=== PATIENT | female | born 1990 | race Caucasian/White ===

== ENCOUNTER 2017-10-04 02:05 | Observation (INO) | payer SELFPAY ==
[~2017-10-04] VITALS: Ht 165.1 cm; Wt 68.0 kg
[2017-10-04 02:06] VITALS: BP 122/81; PULSE 121; RESP 16; TEMP 98.2; O2SAT 96
--- NOTE | 2017-10-04 02:43 | PD ---
HPI Chief Complaint: Skin Problem Time Seen by Provider: 02:33 Travel History International Travel<30 days: No Contact w/Intl Traveler<30days: No Traveled to known affect area: No History of Present Illness HPI Patient is a 27-year-old female who apparently IVDA abuse. Possible miised injection causing sub Q bacteria to cause an abscess that is now spreading to her L hand upper arm on the left extensor surface and dorsum of her hand .Pt is tearful and when I tell her she'll need IV antibiotics and to be admitted she 's crying saying she needs to leave and smoke a cigarette already I tell her how serious this is an that she could lose her hand. I tell her I have seen people have amputations if they ignored the severity of their arm infection and don't take care of an abscess and infection that is spreading and worsening . Male friend? bedside tells her she should stay ... I order immediately her nicotine patch and Ativan and clonidine to help take the edge off of her nicotine and heroin withdrawal symptoms ,..patient at this times agreeing to stay for IV vancomycin I explained severity in danger of not treating an arm cellulitis/early abscess hand that is spreading... her hand is signifiacntly swollen she is unable to move her thumb towards her fifth& fourth digit PFS Past Medical History ADHD: No Cancer: No Cardiovascular Problems: No Diabetes: No Diminished Hearing: No Psychiatric: No Immunizations Current: Yes Migraines: No Seizures: No Thyroid Disease: No Ulcer: No Tetanus Vaccination: Unknown Influenza Vaccination: No ?: Unknown LMP: 09/30/17 Past Surgical History Appendectomy: No Cholecystectomy: No Other Surgery: No Social History Alcohol Use: No Tobacco Use: Yes Substance Use: Yes (XANAX) Allergies-Medications (Allergen,Severity, Reaction): Coded Allergies: *MDRO Multi-Drug Resistant Organism (Verified Allergy, Unknown, 10/05/17) MRSA 08/2013 Reported Meds & Prescriptions Reported Meds & Active Scripts Active No Active Prescriptions or Reported Medications Review of Systems Except as stated in HPI: all other systems reviewed are Neg Physical Exam Narrative GENERAL: tearful and asking to go out to smoke a cigarette as soon as I enter exam room SKIN: Warm and dry. HEAD: Atraumatic. Normocephalic. EYES: Pupils equal and round. No scleral icterus. No injection or drainage. ENT: No nasal bleeding or discharge. Mucous membranes pink and moist. NECK: Trachea midline. No JVD. CARDIOVASCULAR: Regular rate and rhythm. RESPIRATORY: No accessory muscle use. Clear to auscultation. Breath sounds equal bilaterally. GASTROINTESTINAL: Abdomen soft, non-tender, nondistended. Hepatic and splenic margins not palpable. MUSCULOSKELETAL: Extremities right hand severtely swollen decreased ROM of thumb due to fullness of thenar area right hand red tender edema. . NEUROLOGICAL: Awake and alert. No obvious cranial nerve deficits. Motor grossly within normal limits. Five out of 5 muscle strength in the arms and legs. Normal speech. PSYCHIATRIC: addiction withdrwal affecting her judgment Data Data Last Documented VS Vital Signs Date Time Temp Pulse Resp B/P (MAP) Pulse Ox O2 Delivery O2 Flow Rate FiO2 10/04/17 05:32 92 16 129/76 (93) 98 Room Air 10/04/17 02:06 98.2 Orders Orders Nicotine 21 Mg Patch.24 Hr (Habitrol 21 (10/04/17 02:45) Lorazepam (Ativan) (10/04/17 02:45) Vancomycin Inj (Vancomycin Inj) (10/04/17 02:45) Blood Culture (10/04/17 02:40) Complete Blood Count With Diff (10/04/17 02:40) Comprehensive Metabolic Panel (10/04/17 02:40) Ketorolac Inj (Toradol Inj) (10/04/17 04:00) Lorazepam Inj (Ativan Inj) (10/04/17 04:30) Clonidine (Catapres) (10/04/17 04:30) Clonidine (Catapres) (10/04/17 04:30) Lorazepam Inj (Ativan Inj) (10/04/17 05:30) Vancomycin Consult Pharmacy (Vancomycin (10/04/17 06:00) Cefepime Inj (Maxipime Inj) (10/04/17 06:00) Place In Observation (10/04/17 ) Vital Signs (Adult) Q4H (10/04/17 05:49) Activity Oob Ad Silke (10/04/17 05:49) Diet Regular Basic (10/04/17 Breakfast) Sodium Chlor 0.9% 1000 Ml Inj (Ns 1000 M (10/04/17 05:49) Sodium Chloride 0.9% Flush (Ns Flush) (10/04/17 06:00) Sodium Chloride 0.9% Flush (Ns Flush) (10/04/17 09:00) Ondansetron Inj (Zofran Inj) (10/04/17 06:00) Scd Bilateral/Knee High BARON.BID (10/04/17 05:49) Trey Bilateral/Knee High BARON.QSHIFT (10/04/17 06:00) Acetaminophen (Tylenol) (10/04/17 06:00) Oxycodone (Roxicodone) (10/04/17 06:00) Oxycodone (Roxicodone) (10/04/17 06:00) Docusate Sodium-Senna (Brittany-Colace) (10/04/17 09:00) Magnesium Hydroxide Liq (Milk Of Magnesi (10/04/17 06:00) Sennosides (Senokot) (10/04/17 06:00) Bisacodyl Supp (Dulcolax Supp) (10/04/17 06:00) Lactulose Liq (Lactulose Liq) (10/04/17 06:00) Admit Order (Ed Use Only) (10/04/17 06:07) Labs Laboratory Tests Test 10/04/17 02:56 White Blood Count 5.9 TH/MM3 Red Blood Count 4.16 MIL/MM3 Hemoglobin 13.0 GM/DL Hematocrit 35.9 % Mean Corpuscular Volume 86.3 FL Mean Corpuscular Hemoglobin 31.2 PG Mean Corpuscular Hemoglobin Concent 36.2 % Red Cell Distribution Width 13.6 % Platelet Count 271 TH/MM3 Mean Platelet Volume 8.0 FL Neutrophils (%) (Auto) 75.9 % Lymphocytes (%) (Auto) 10.4 % Monocytes (%) (Auto) 9.4 % Eosinophils (%) (Auto) 1.3 % Basophils (%) (Auto) 3.0 % Neutrophils # (Auto) 4.5 TH/MM3 Lymphocytes # (Auto) 0.6 TH/MM3 Monocytes # (Auto) 0.5 TH/MM3 Eosinophils # (Auto) 0.1 TH/MM3 Basophils # (Auto) 0.2 TH/MM3 CBC Comment DIFF FINAL Differential Comment Blood Urea Nitrogen 6 MG/DL Creatinine 0.61 MG/DL Random Glucose 100 MG/DL Total Protein 7.4 GM/DL Albumin 3.1 GM/DL Calcium Level 8.5 MG/DL Alkaline Phosphatase 51 U/L Aspartate Amino Transf (AST/SGOT) 42 U/L Alanine Aminotransferase (ALT/SGPT) 26 U/L Total Bilirubin 0.8 MG/DL Sodium Level 135 MEQ/L Potassium Level 3.1 MEQ/L Chloride Level 98 MEQ/L Carbon Dioxide Level 30.5 MEQ/L Anion Gap 7 MEQ/L Estimat Glomerular Filtration Rate 118 ML/MIN [facility] Medical Decision Making Medical Screen Exam Complete: Yes Emergency Medical Condition: Yes Differential Diagnosis cellulitis arm and hand , vs abscess , vs necrotizing fascitis, vs IVDA complication of injecting into soft tissue , tenosynovitis Narrative Course pt is given VAnco IV and toradol for pain,, she is at risk for leaving without completion of her treatment and risk of limb loss . I give her ativan and clonidine. I order it as a schedule Q 3-4 hr for withdrawal symptoms . I tell pt narcotics not indicated but will given meds to help pain , toradol q 6 and ativan and clonidine , she is sleeping when admitted , at that point compliant with plan B/C and CBC sent Diagnosis Primary Impression: Cellulitis of hand Additional Impression: Left arm cellulitis Scripts No Active Prescriptions or Reported Meds Dereck Eng MD Oct 04, 2017 02:43
[2017-10-04] MEDS ORDERED: NICOTINE 21 MG/24 HR PATCH T-DERMAL ONE (02:45)
[2017-10-04] MEDS ORDERED: LORazepam 1 MG TAB PO ONE (02:45)
[2017-10-04] MEDS ORDERED: VANCOMYCIN INJ 1,000 MG in SODIUM CHLOR 0.9% 250 ML INJ 250 ML IV ONE (02:45)
[2017-10-04 03:45] LABS: AUTOMATED NEUTROPHIL # 4.5 TH/MM3 (1.8-7.7); BASOPHIL # 0.2 TH/MM3 (0-0.2); EOSINOPHIL # 0.1 TH/MM3 (0-0.4); EOSINOPHIL % 1.3 % (0.0-4.0); HEMATOCRIT 35.9 % (35.0-46.0); LYMPH % 10.4 % (9.0-44.0); LYMPHOCYTE # 0.6 TH/MM3 (1.0-4.8); MEAN CELL VOLUME 86.3 FL (80.0-100.0); MEAN CORPUSCULAR HEMOGLOBIN 31.2 PG (27.0-34.0); MONO % 9.4 % (0.0-8.0); MONOCYTE # 0.5 TH/MM3 (0-0.9); NEUT % 75.9 % (16.0-70.0); PLATELET COUNT 271 TH/MM3 (150-450); RED BLOOD COUNT 4.16 MIL/MM3 (4.00-5.30); RED CELL DISTRIBUTION WIDTH 13.6 % (11.6-17.2); WHITE BLOOD COUNT 5.9 TH/MM3 (4.0-11.0)
[2017-10-04 03:48] LABS: MEAN CORPUSCULAR HGB CONC 36.2 % (32.0-36.0)
[2017-10-04 03:49] LABS: ALKALINE PHOSPHATASE 51 U/L (45-117); TOTAL BILIRUBIN ADULT 0.8 MG/DL (0.2-1.0); TOTAL PROTEIN 7.4 GM/DL (6.4-8.2)
[2017-10-04] MEDS ORDERED: KETOROLAC TROMETHAMINE 30 MG/ML (IVP) VIAL IV PUSH ONE (04:00)
[2017-10-04 04:07] LABS: ALBUMIN 3.1 GM/DL (3.4-5.0); ALT (GPT) 26 U/L (10-53); AST (GOT) 42 U/L (15-37); BICARBONATE 30.5 MEQ/L (21.0-32.0); BLOOD UREA NITROGEN 6 MG/DL (7-18); CALCIUM 8.5 MG/DL (8.5-10.1); CHLORIDE 98 MEQ/L (98-107); CREATININE 0.61 MG/DL (0.50-1.00); GLOMERULAR FILTRATION RATE 118 ML/MIN (>89); GLUCOSE,RANDOM 100 MG/DL (74-106); SODIUM (NA) 135 MEQ/L (136-145)
[2017-10-04] MEDS ORDERED: LORazepam 2 MG/ML VIAL IV PUSH ONE (04:30)
[2017-10-04] MEDS ORDERED: cloNIDine HCL 0.1 MG TAB PO ONE (04:30)
[2017-10-04] MEDS ORDERED: cloNIDine HCL 0.1 MG TAB PO PRN (04:30)
[2017-10-04] MEDS ORDERED: LORazepam 2 MG/ML VIAL IV PUSH PRN (05:30)
[2017-10-04 05:32] VITALS: BP 129/76; PULSE 92; RESP 16; O2SAT 98
[2017-10-04] MEDS ORDERED: Vancomycin Consult Pharmacy 1 EA OTHER SCH (06:00)
[2017-10-04] MEDS ORDERED: ONDANSETRON HCL 4 MG/2 ML VIAL IVP PRN (06:00)
[2017-10-04] MEDS ORDERED: BISACODYL 10 MG SUPP RECTAL PRN (06:00)
[2017-10-04] MEDS ORDERED: SODIUM CHLORIDE 0.9% FLUSH 10 ML FLUSH IV FLUSH PRN (06:00)
[2017-10-04] MEDS ORDERED: SENNOSIDES 8.6 MG TAB PO PRN (06:00)
[2017-10-04] MEDS ORDERED: LACTULOSE SYRUP 20 GM/30 ML CUP PO PRN (06:00)
[2017-10-04] MEDS ORDERED: ACETAMINOPHEN 325 MG TAB PO PRN (06:00)
[2017-10-04] MEDS ORDERED: MAGNESIUM HYDROXIDE SUSP 30 ML CUP PO PRN (06:00)
[2017-10-04] MEDS: CEFEPIME INJ 1,000 MG in SODIUM CHLORIDE 0.9% INJ 100 ML IV SCH ×2 (06:05→18:02)
[2017-10-04] MEDS: SODIUM CHLOR 0.9% 1000 ML INJ 1,000 ML IV SCH ×2 (06:10→15:49)
[2017-10-04] MEDS ORDERED: SODIUM CHLORIDE 0.9% FLUSH 10 ML FLUSH IV FLUSH SCH (09:00)
[2017-10-04] MEDS ORDERED: DOCUSATE SODIUM 50 MG/SENNA 8.6 MG TAB PO SCH (09:00)
[2017-10-04] MEDS ORDERED: KETOROLAC TROMETHAMINE 30 MG/ML (IVP) VIAL IV PUSH PRN (09:45)
[2017-10-04] MEDS ORDERED: traMADol/ACETAMINOPHEN 37.5/325 1 TAB PO PRN (09:45)
[2017-10-04] MEDS ORDERED: POTASSIUM CHLORIDE 20 MEQ CONTROLLED RELEASE TAB PO ONE (09:45)
--- NOTE | 2017-10-04 09:49 | HHI.HP ---
[facility] Service [facility] Primary Care Physician No Primary Care Physician Admission Diagnosis arm cellulitis Diagnoses: Chief Complaint: Left arm pain and cellulitis Travel History International Travel<30 Days: No Contact w/Intl Traveler <30 Da: No Traveled to Known Affected Are: No History of Present Illness This is a 27-year-old female IV drug user with heroin when who presented with left arm cellulitis. Patient is not very talkative minimal 1 to give much history. She stated that she noticed the swelling started 4 days ago. She is a current IV drug user. Patient stated she has subjective fever. Otherwise she has no complaints. There is an older gentleman at her bedside who is a friend. Patient stated that she will only stay in the hospital only if "i knocked her out" during the entire course. She stated that she does not want to be awake why she's getting treatment here. All other review system reviewed and negative. Past Family Social History Past Medical History IV drug use with heroin Past Surgical History Denies any past surgical history. Reported Medications Denied any home medication use. Allergies: Coded Allergies: *MDRO Multi-Drug Resistant Organism (Verified Allergy, Unknown, 10/04/17) MRSA 08/2013 Active Ordered Medications Current Medications Nicotine (Habitrol 21 Mg Patch.24 Hr) 1 patch ONCE ONCE T-DERMAL Last administered on 10/04/17at 02:49; Start 10/04/17 at 02:45; Stop 10/04/17 at 02:46 ; Status DC Lorazepam (Ativan) 1 mg ONCE ONCE PO Last administered on 10/04/17at 02:49; Start 10/04/17 at 02:45; Stop 10/04/17 at 02:46; Status DC Vancomycin HCl 1000 mg/Sodium Chloride 250 ml @ 250 mls/hr ONCE ONCE IV Last administered on 10/04/17at 03:00; Start 10/04/17 at 02:45; Stop 10/04/17 at 03:44 ; Status DC Ketorolac Tromethamine (Toradol Inj) 30 mg ONCE ONCE IV PUSH Last administered on 10/04/17at 04:02; Start 10/04/17 at 04:00; Stop 10/04/17 at 04:01 ; Status DC Lorazepam (Ativan Inj) 1 mg ONCE ONCE IV PUSH Last administered on 10/04/17at 04:34; Start 10/04/17 at 04:30; Stop 10/04/17 at 04:37; Status DC Clonidine (Catapres) 0.1 mg ONCE ONCE PO Last administered on 10/04/17at 04:34 ; Start 10/04/17 at 04:30; Stop 10/04/17 at 04:37; Status DC Clonidine (Catapres) 0.1 mg Q6H PRN PO ANXIETY; Start 10/04/17 at 04:30; Stop 10/04/17 at 09:36; Status DC Lorazepam (Ativan Inj) 0.5 mg Q4H PRN IV PUSH agitation; Start 10/04/17 at 05: 30; Stop 10/04/17 at 09:36; Status DC Pharmacy Profile Note 0 ml @ 0 mls/hr UNSCH OTHER ; Start 10/04/17 at 06:00 Cefepime HCl 1000 mg/Sodium Chloride 100 ml @ 200 mls/hr Q12H IV Last administered on 10/04/17at 06:05; Start 10/04/17 at 06:00 Sodium Chloride 1,000 ml @ 100 mls/hr Q10H IV Last administered on 10/04/17at 06:10; Start 10/04/17 at 05:49 Sodium Chloride (NS Flush) 2 ml UNSCH PRN IV FLUSH FLUSH AFTER USING IV ACCESS ; Start 10/04/17 at 06:00 Sodium Chloride (NS Flush) 2 ml BID IV FLUSH ; Start 10/04/17 at 09:00 Ondansetron HCl (Zofran Inj) 4 mg Q6H PRN IVP NAUSEA OR VOMITING; Start at 06:00 Acetaminophen (Tylenol) 650 mg Q6H PRN PO FEVER/PAIN SCALE 1 TO 2; Start at 06:00 Oxycodone HCl (Roxicodone) 10 mg Q4H PRN PO PAIN SCALE 6 TO 10; Start 10/04/17 at 06:00 Oxycodone HCl (Roxicodone) 5 mg Q4H PRN PO PAIN SCALE 3 TO 5; Start 10/04/17 at 06:00 Senna/Docusate Sodium (Brittany-Colace) 1 tab BID PO ; Start 10/04/17 at 09:00 Magnesium Hydroxide (Milk Of Magnesia Liq) 30 ml Q12H PRN PO Mild constipation ; Start 10/04/17 at 06:00 Sennosides (Senokot) 17.2 mg Q12H PRN PO Moderate constipation; Start 10/04/17 at 06:00 Bisacodyl (Dulcolax Supp) 10 mg DAILY PRN RECTAL SEVERE CONSITIPATION; Start at 06:00 Lactulose (Lactulose Liq) 30 ml DAILY PRN PO SEVERE CONSITIPATION; Start at 06:00 Ketorolac Tromethamine (Toradol Inj) 15 mg Q6H PRN IV PUSH PAIN 3-10; Start at 09:45; Status UNV Tramadol/ Acetaminophen (Ultracet 37.5-325 Mg) 1 tab Q4H PRN PO PAIN 3-10; Start 10/04/17 at 09:45; Status UNV Potassium Chloride (KCl) 20 meq ONCE ONCE PO ; Start 10/04/17 at 09:45; Stop at 09:46; Status UNV Hydroxyzine Pamoate (Vistaril) 25 mg Q4H PRN PO ANIXETY; Start 10/04/17 at 09: 45; Status UNV Family History Deny any past family history history. Social History Current IV drug user. Smokes tobacco. Denies any alcohol use. Physical Exam Vital Signs Vital Signs Date Time Temp Pulse Resp B/P (MAP) Pulse Ox O2 Delivery O2 Flow Rate FiO2 10/04/17 07:12 10/04/17 05:32 92 16 129/76 (93) 98 Room Air 10/04/17 02:06 98.2 121 16 122/81 (95) 96 Room Air Physical Exam GENERAL: This is a well-nourished, well-developed patient, in no apparent distress. SKIN: Left arm swelling with mild erythema. Tenderness to palpation but soft. Full range of motion of the elbow. radial Pulses intact. sensation intact. HEAD: Atraumatic. Normocephalic. No temporal or scalp tenderness. EYES: Pupils equal round and reactive. Extraocular motions intact. No scleral icterus. No injection or drainage. ENT: Nose without bleeding, purulent drainage or septal hematoma. Throat without erythema, tonsillar hypertrophy or exudate. Uvula midline. Airway patent. NECK: Trachea midline. No JVD or lymphadenopathy. Supple, nontender, no meningeal signs. CARDIOVASCULAR: Regular rate and rhythm without murmurs, gallops, or rubs. RESPIRATORY: Clear to auscultation. Breath sounds equal bilaterally. No wheezes , rales, or rhonchi. GASTROINTESTINAL: Abdomen soft, non-tender, nondistended. No hepato-splenomegaly , or palpable masses. No guarding. MUSCULOSKELETAL: Extremities without clubbing, cyanosis, or edema. No joint tenderness, effusion, or edema noted. No calf tenderness. Negative Homans sign bilaterally. NEUROLOGICAL: Awake and alert. Cranial nerves II through XII intact. Motor and sensory grossly within normal limits. Five out of 5 muscle strength in all muscle groups. Normal speech. Laboratory Laboratory Tests Test 10/04/17 02:56 White Blood Count 5.9 Red Blood Count 4.16 Hemoglobin 13.0 Hematocrit 35.9 Mean Corpuscular Volume 86.3 Mean Corpuscular Hemoglobin 31.2 Mean Corpuscular Hemoglobin Concent 36.2 Red Cell Distribution Width 13.6 Platelet Count 271 Mean Platelet Volume 8.0 Neutrophils (%) (Auto) 75.9 Lymphocytes (%) (Auto) 10.4 Monocytes (%) (Auto) 9.4 Eosinophils (%) (Auto) 1.3 Basophils (%) (Auto) 3.0 Neutrophils # (Auto) 4.5 Lymphocytes # (Auto) 0.6 Monocytes # (Auto) 0.5 Eosinophils # (Auto) 0.1 Basophils # (Auto) 0.2 CBC Comment DIFF FINAL Differential Comment Blood Urea Nitrogen 6 Creatinine 0.61 Random Glucose 100 Total Protein 7.4 Albumin 3.1 Calcium Level 8.5 Alkaline Phosphatase 51 Aspartate Amino Transf (AST/SGOT) 42 Alanine Aminotransferase (ALT/SGPT) 26 Total Bilirubin 0.8 Sodium Level 135 Potassium Level 3.1 Chloride Level 98 Carbon Dioxide Level 30.5 Anion Gap 7 Estimat Glomerular Filtration Rate 118 Date/Time Source Procedure Growth Status 10/04/17 02:56 Blood Peripheral Aerobic Blood Culture Pending Received 10/04/17 02:56 Blood Peripheral Anaerobic Blood Culture Pending Received Result Diagram: 10/04/17 0256 10/04/17255 Caprini VTE Risk Assessment Caprini VTE Risk Assessment: No/Low Risk (score <= 1) Caprini Risk Assessment Model Point Value = 1 Point Value = 2 Point Value = 3 Point Value = 5 Age 41-60 Minor surgery BMI > 25 kg/m2 Swollen legs Varicose veins or History of unexplained or recurrent spontaneous Oral contraceptives or hormone replacement Sepsis (< 1 month) Serious lung disease, including pneumonia (< 1 month) Abnormal pulmonary function Acute myocardial infarction Congestive heart failure (< 1 month) History of inflammatory bowel disease Medical patient at bed rest Age 61-74 Arthroscopic surgery Major open surgery (> 45 min) Laparoscopic surgery (> 45 min) Malignancy Confined to bed (> 72 hours) Immobilizing plaster cast Central venous access Age >= 75 History of VTE Family history of VTE Factor V Leiden Prothrombin [id number] Lupus anticoagulant Anticardiolipin antibodies Elevated serum homocysteine Heparin-induced thrombocytopenia Other congenital or acquired thrombophilia Stroke (< 1 month) Elective arthroplasty Hip, pelvis, or leg fracture Acute spinal cord injury (< 1 month) Prophylaxis Regimen Total Risk Factor Score Risk Level Prophylaxis Regimen 0-1 Low Early ambulation 2 Moderate Order ONE of the following: *Sequential Compression Device (SCD) *Heparin 5000 units SQ BID 3-4 Higher Order ONE of the following medications: *Heparin 5000 units SQ TID *Enoxaparin/Lovenox 40 mg SQ daily (WT < 150 kg, CrCl > 30 mL/min) *Enoxaparin/Lovenox 30 mg SQ daily (WT < 150 kg, CrCl > 10-29 mL/min) *Enoxaparin/Lovenox 30 mg SQ BID (WT < 150 kg, CrCl > 30 mL/min) AND/OR *Sequential Compression Device (SCD) 5 or more Highest Order ONE of the following medications: *Heparin 5000 units SQ TID (Preferred with Epidurals) *Enoxaparin/Lovenox 40 mg SQ daily (WT < 150 kg, CrCl > 30 mL/min) *Enoxaparin/Lovenox 30 mg SQ daily (WT < 150 kg, CrCl > 10-29 mL/min) *Enoxaparin/Lovenox 30 mg SQ BID (WT < 150 kg, CrCl > 30 mL/min) AND *Sequential Compression Device (SCD) Assessment and Plan Assessment and Plan 27-year-old current IV drug user with heroin presented with left arm cellulitis Left arm cellulitis -Current IV drug user. Will cover empirically with vancomycin and cefepime. Consult infectious disease. -Continue to monitor clinically. -Extensive education given on treatment for left arm cellulitis. Patient told if not treated infection can spread which can lead to . Patient understood. -Toradol or tramadol IV drug user -Patient told cannot sedate patient throughout hospital course but can treat for any withdrawal symptoms including agitation. -Education given on how IV drug use can lead to . Anxiety -Vistaril. DVT prophylaxis -SCDs. Encourage ambulation. Code Status full Discussed Condition With patient, her friend at bedside, and her nurse Adrienne. Physician Certification 2 Midnight Certification Type: Admission for Inpatient Services Order for Inpatient Services The services are ordered in accordance with Medicare regulations or non- Medicare payer requirements, as applicable. In the case of services not specified as inpatient-only, they are appropriately provided as inpatient services in accordance with the 2-midnight benchmark. Estimated LOS (days): 3 3 days is the estimated time the patient will need to remain in the hospital, assuming treatment plan goals are met and no additional complications. Post-Hospital Plan: Mary Amin MD Oct 04, 2017 09:49
[2017-10-04 12:14] VITALS: BP 104/70; PULSE 85; RESP 20; TEMP 97.9; O2SAT 98
[2017-10-04] MEDS ORDERED: VANCOMYCIN 1,000 MG/NS 250 ML IV SCH ×2 (13:00)
[2017-10-04] MEDS: hydrOXYzine PAMOATE 25 MG CAP PO PRN ×2 (13:47→18:27)
[2017-10-04 16:33] VITALS: BP 110/68; PULSE 80; RESP 20; TEMP 98; O2SAT 98
--- NOTE | 2017-10-04 19:35 | MB ---
cc: MICHELET HUERTAS MD DATE OF CONSULTATION 10/04/[address] Mary So REASON FOR CONSULTATION A 27-year-old female with current IV drug use presented with left arm cellulitis. HISTORY OF PRESENT ILLNESS This is a 27-year-old white female who presented to the emergency department with swelling of her left arm. The patient is an IV drug user. She injected into the dorsum of her hand and she developed swelling of the left hand which started four days ago. The swelling increased and she presented to the emergency department for evaluation. The patient has no fever. White blood cell count is normal. Blood cultures were taken and the result is pending. She has been started on intravenous antibiotics. There is no break in the skin of the arm. The swelling extends from the dorsum of the hand up to the area near the elbow. She is unable to make a complete fist because of the swelling. PAST MEDICAL HISTORY IV drug use in the form of heroin. ALLERGIES NO KNOWN DRUG ALLERGIES. MEDICATIONS 1. Vancomycin 2. Cefepime. 3. Toradol. 4. Vistaril p.r.n. SOCIAL HISTORY Positive tobacco. No alcohol. IV drug use. FAMILY HISTORY Noncontributory. REVIEW OF SYSTEMS Significant for left arm pain. PHYSICAL EXAMINATION GENERAL: This is a well-developed female who is very somnolent. She did wake up to answer questions during my history taking, but she drifts back to sleep. VITAL SIGNS: Temperature 98 degrees, blood pressure 110/60, respirations 20, heart rate 80. HEENT: Head is atraumatic. Extraocular movements grossly intact. Pupils reactive to light. No icterus. Oropharynx slightly dry mucosa. NECK: Supple without adenopathy. LUNGS: Clear, decreased breath sounds HEART: Regular, S1, S2 without audible murmurs, rubs or gallops. ABDOMEN: Bowel sounds present, soft, no tenderness appreciated. RECTAL: Not performed. EXTREMITIES: The left upper extremity is markedly swollen and erythematous. The dorsum of the hand is markedly swollen and the swelling extends up to the elbow area. The ulnar and radial pulses are intact. Brisk capillary refill. The other extremities have no clubbing, cyanosis or edema. SKIN: No diffuse rash. The patient has multiple bruises at the anterior tibia on the left side more so than the right. No visible embolic skin lesions. NEUROLOGIC: No gross focal findings. The patient, however, is very somnolent. PSYCHIATRIC: The patient is calm. LABORATORY DATA WBC 5.9, platelets 271, 75% neutrophils, creatinine 0.61. Blood cultures pending. IMPRESSION Cellulitis of the left upper extremity arising from injecting IV drugs into the left hand. Known IV drug user who uses IV heroin. Blood cultures pending. RECOMMENDATIONS 1. Continue cefepime 2. Continue vancomycin 3. Monitor the left upper extremity 4. Elevate the left upper extremity. Thank you for this consultation. I will follow the patient along with you. Michelet Huertas MD FD/ /5:40 PM /7:23 PM
[2017-10-04 20:00] VITALS: BP 94/63; PULSE 96; RESP 18; TEMP 98.3; O2SAT 97
[2017-10-05] MEDS ORDERED: PHARMACY ORDERED LAB ONE (04:45)
== END 2017-10-04 22:57 | disposition left against medical advice (07) ==
LOC: NEPE 02:05 → NEDA 06:08 → NEPGCP 07:24
PROVIDERS: ADMIT Family Medicine; ATTEND Family Medicine
DX: L03.114 Cellulitis of left upper limb (principal); F11.23 Opioid dependence with withdrawal; F41.9 Anxiety disorder, unspecified; Z72.0 Tobacco use
CPT/HCPCS: 80053; 85025; 87040; 96361; 96365; 96366; 96375; 96376; 99285; G0378; J0692; J1885; J2060; J3370; J7030; J7050; Q0177

== ENCOUNTER 2017-10-05 00:52 | Inpatient (IN) | payer SELFPAY ==
[2017-10-05] VITALS (7 sets, daily range): BP systolic 98–120; BP diastolic 62–81; PULSE 76–113; RESP 16–18; TEMP 97.3–98.2; O2SAT 95–98
[~2017-10-05] VITALS: Ht 162.6 cm; Wt 80.0 kg
[2017-10-05] MEDS ORDERED: diphenhydrAMINE HCL 50 MG/ML VIAL ONE (01:22)
[2017-10-05] MEDS ORDERED: KETOROLAC TROMETHAMINE 30 MG/ML (IVP) VIAL ONE (01:22)
[2017-10-05] MEDS ORDERED: LORazepam 2 MG/ML VIAL ONE (02:13)
--- NOTE | 2017-10-05 02:46 | PD ---
HPI Chief Complaint: Skin Problem Time Seen by Provider: 01:00 Travel History International Travel<30 days: No Contact w/Intl Traveler<30days: No Traveled to known affect area: No History of Present Illness HPI 27-year-old female patient with history of IV drug use, admitted yesterday for left arm cellulitis, signed out AGAINST MEDICAL ADVICE 2 hours ago and returns today because she wants to get readmitted. She states that she just got upset because her visitor was asked to leave. She denies any new issues. PFSH Past Medical History ADHD: No Asthma: No Blood Disorders: No Anxiety: No Depression: Yes Heart Rhythm Problems: No Cancer: No Cardiovascular Problems: No High Cholesterol: No Chemotherapy: No Chest Pain: No Congestive Heart Failure: No COPD: No Diabetes: No Diminished Hearing: No Gastrointestinal Disorders: No Genitourinary: No Hypertension: No Immune Disorder: No Implanted Vascular Access Dvce: No Musculoskeletal: No Neurologic: No Psychiatric: No Respiratory: No Immunizations Current: Yes Migraines: No Radiation Therapy: No Seizures: No Sleep Apnea: No Thyroid Disease: No Ulcer: No ?: Not Past Surgical History Appendectomy: No Cholecystectomy: No Other Surgery: No Social History Alcohol Use: No Tobacco Use: Yes Substance Use: Yes (XANAX) Allergies-Medications (Allergen,Severity, Reaction): Coded Allergies: *MDRO Multi-Drug Resistant Organism (Verified Allergy, Unknown, 10/05/17) MRSA 08/2013 Reported Meds & Prescriptions Reported Meds & Active Scripts Active No Active Prescriptions or Reported Medications Review of Systems Except as stated in HPI: all other systems reviewed are Neg Physical Exam Narrative GENERAL: Well-developed young female patient currently in mild distress. Awake and oriented 3. SKIN: Focused skin assessment warm/dry. There is notable erythema and edema over the left hand and forearm which is tender to palpation. HEAD: Atraumatic. Normocephalic. EYES: Pupils equal and round. No scleral icterus. No injection or drainage. ENT: No nasal bleeding or discharge. Mucous membranes pink and moist. NECK: Trachea midline. No JVD. CARDIOVASCULAR: Regular rate and rhythm. No murmur appreciated. RESPIRATORY: No accessory muscle use. Clear to auscultation. Breath sounds equal bilaterally. GASTROINTESTINAL: Abdomen soft, non-tender, nondistended. Hepatic and splenic margins not palpable. MUSCULOSKELETAL: No obvious deformities. No clubbing. No cyanosis. No edema. NEUROLOGICAL: Awake and alert. No obvious cranial nerve deficits. Motor grossly within normal limits. Normal speech. PSYCHIATRIC: Appropriate mood and affect; insight and judgment poor. Data Data Last Documented VS Vital Signs Date Time Temp Pulse Resp B/P (MAP) Pulse Ox O2 Delivery O2 Flow Rate FiO2 10/05/17 00:53 97.7 113 16 120/81 (94) 98 Room Air Orders Orders Diphenhydramine Inj (Benadryl Inj) (10/05/17 01:22) Ketorolac Inj (Toradol Inj) (10/05/17 01:22) Lorazepam Inj (Ativan Inj) (10/05/17 02:13) MDM Medical Decision Making Medical Screen Exam Complete: Yes Emergency Medical Condition: Yes Medical Record Reviewed: Yes Differential Diagnosis IV drug use/left arm cellulitis Narrative Course Case was discussed with Dr. Escalante who re-admit the patient Diagnosis Primary Impression: Cellulitis of left hand Admitting Information Admitting Physician Requests: Admit Scripts No Active Prescriptions or Reported Meds Queenie Moon MD Oct 05, 2017 02:46
[2017-10-05] MEDS ORDERED: Vancomycin Consult Pharmacy 1 EA OTHER SCH (03:00)
[2017-10-05] MEDS ORDERED: LACTULOSE SYRUP 20 GM/30 ML CUP PO PRN (03:00)
[2017-10-05] MEDS ORDERED: ACETAMINOPHEN 325 MG TAB PO PRN (03:00)
[2017-10-05] MEDS ORDERED: MAGNESIUM HYDROXIDE SUSP 30 ML CUP PO PRN (03:00)
[2017-10-05] MEDS ORDERED: ONDANSETRON HCL 4 MG/2 ML VIAL IVP PRN (03:00)
[2017-10-05] MEDS ORDERED: SENNOSIDES 8.6 MG TAB PO PRN (03:00)
[2017-10-05] MEDS ORDERED: SODIUM CHLORIDE 0.9% FLUSH 10 ML FLUSH IV FLUSH PRN (03:00)
[2017-10-05] MEDS ORDERED: BISACODYL 10 MG SUPP RECTAL PRN (03:00)
--- NOTE | 2017-10-05 03:16 | HHI.HP ---
[facility] Admission Diagnosis Left arm cellulitis Diagnoses: (1) Cellulitis of left hand Diagnosis: Principal (2) IVDU (intravenous drug user) Diagnosis: Principal (3) Anxiety Diagnosis: Principal Travel History International Travel<30 Days: No Contact w/Intl Traveler <30 Da: No Traveled to Known Affected Are: No History of Present Illness This is a 27-year-old female with a PMH of IVDU and Anxiety was admitted on 10/04 for left arm cellulitis, however pt LEFT AMA earlier this morning because she was upset that her father was asked to leave when visiting hours were over. Returns now for readmission because she was told "I could ". On arrival, BP 120/81, HR 113, O2 sat 98% on RA, Afebrile. Labs from 10/04/17 essentially unremarkable except for 3.1. Was on Vanc/Cefepime during last admit, s/p eval by Dr. Max w/ recommendation to continue IV Abx. Review of Systems Except as stated in HPI: all other systems reviewed are Neg ROS: 14 point review of systems otherwise negative. Past Family Social History Past Medical History PMH: IVDU and Anxiety Past Surgical History PAST SURGICAL HISTORY: None Allergies: Coded Allergies: *MDRO Multi-Drug Resistant Organism (Verified Allergy, Unknown, 10/05/17) MRSA 08/2013 Family History PAST FAMILY HISTORY: Reviewed. No h/o DM or CAD Social History PAST SOCIAL HISTORY: Negative for alcohol. Positive for tobacco. +IVDU w/ Heroin/Xanax Physical Exam Vital Signs Vital Signs Date Time Temp Pulse Resp B/P (MAP) Pulse Ox O2 Delivery O2 Flow Rate FiO2 10/05/17 03:05 97.8 86 18 105/68 (80) 97 10/05/17 00:53 97.7 113 16 120/81 (94) 98 Room Air Physical Exam PE: GENERAL: Young white female in no acute distress. Father at bedside. HEENT: PERRLA, EOMI. No scleral icterus or conjunctival pallor. No lid lag or facial droop. CARDIOVASCULAR: Regular rate and rhythm. No obvious murmurs to auscultation. No chest tenderness to palpation. RESPIRATORY: No obvious rhonchi or wheezing. Clear to auscultation. Breath sounds equal bilaterally. GASTROINTESTINAL: Abdomen soft, non-tender, nondistended. BS normal. MUSCULOSKELETAL: Extremities without clubbing, cyanosis, or edema. No obvious deformities. LUE with significant erythema/edema, no purulent drainage noted. NEUROLOGICAL: Awake, alert and oriented x4. No focal neurologic deficits. Moving both upper and lower extremities spontaneously. Caprini VTE Risk Assessment Caprini VTE Risk Assessment: No/Low Risk (score <= 1) Caprini Risk Assessment Model Point Value = 1 Point Value = 2 Point Value = 3 Point Value = 5 Age 41-60 Minor surgery BMI > 25 kg/m2 Swollen legs Varicose veins or History of unexplained or recurrent spontaneous Oral contraceptives or hormone replacement Sepsis (< 1 month) Serious lung disease, including pneumonia (< 1 month) Abnormal pulmonary function Acute myocardial infarction Congestive heart failure (< 1 month) History of inflammatory bowel disease Medical patient at bed rest Age 61-74 Arthroscopic surgery Major open surgery (> 45 min) Laparoscopic surgery (> 45 min) Malignancy Confined to bed (> 72 hours) Immobilizing plaster cast Central venous access Age >= 75 History of VTE Family history of VTE Factor V Leiden Prothrombin [id number] Lupus anticoagulant Anticardiolipin antibodies Elevated serum homocysteine Heparin-induced thrombocytopenia Other congenital or acquired thrombophilia Stroke (< 1 month) Elective arthroplasty Hip, pelvis, or leg fracture Acute spinal cord injury (< 1 month) Prophylaxis Regimen Total Risk Factor Score Risk Level Prophylaxis Regimen 0-1 Low Early ambulation 2 Moderate Order ONE of the following: *Sequential Compression Device (SCD) *Heparin 5000 units SQ BID 3-4 Higher Order ONE of the following medications: *Heparin 5000 units SQ TID *Enoxaparin/Lovenox 40 mg SQ daily (WT < 150 kg, CrCl > 30 mL/min) *Enoxaparin/Lovenox 30 mg SQ daily (WT < 150 kg, CrCl > 10-29 mL/min) *Enoxaparin/Lovenox 30 mg SQ BID (WT < 150 kg, CrCl > 30 mL/min) AND/OR *Sequential Compression Device (SCD) 5 or more Highest Order ONE of the following medications: *Heparin 5000 units SQ TID (Preferred with Epidurals) *Enoxaparin/Lovenox 40 mg SQ daily (WT < 150 kg, CrCl > 30 mL/min) *Enoxaparin/Lovenox 30 mg SQ daily (WT < 150 kg, CrCl > 10-29 mL/min) *Enoxaparin/Lovenox 30 mg SQ BID (WT < 150 kg, CrCl > 30 mL/min) AND *Sequential Compression Device (SCD) Assessment and Plan Problem List: (1) Cellulitis of left hand ICD Code: L03.114 - Cellulitis of left upper limb Status: Acute (2) Anxiety ICD Code: F41.9 - Anxiety disorder, unspecified (3) IVDU (intravenous drug user) ICD Code: F19.90 - Other psychoactive substance use, unspecified, uncomplicated Assessment and Plan A/P: 1. LUE Cellulitis: h/o IVDU, admitted 10/04/17 for similar however LEFT AMA, returns now for re-admission. Start IV Vanc/Cefepime, follow up cultures from last admit. Repeat labs to al for leukocytosis. Consult ID, seen by Dr. Adler on last visit. 2. Anxiety: Pt w/ significant anxiety, likely compounded by withdrawal from drug use. Ativan prn. 3. IVDU: Pt counselled. Admits to ongoing Heroin abuse. Ativan prn for withdrawal. 4. DVT Prophylaxis: SCD/Teds. 5. Social work for d/c planning as needed. 6. Case discussed w/ ER physician at length. Serena Escalante MD Oct 05, 2017 03:16
[2017-10-05] MEDS ORDERED: VANCOMYCIN INJ 1,250 MG in SODIUM CHLOR 0.9% 250 ML INJ 250 ML IV ONE (04:00)
[2017-10-05] MEDS: SODIUM CHLOR 0.9% 1000 ML INJ 1,000 ML IV SCH ×3 (04:59→21:06)
[2017-10-05] MEDS: DOCUSATE SODIUM 50 MG/SENNA 8.6 MG TAB PO SCH ×2 (09:31→20:03)
--- NOTE | 2017-10-05 09:31 | HHI.PR ---
Subjective Remarks Follow up for LUE cellulitis. The patient reports continue left hand pain, erythema, edema. She does not believe it has improved much compared to yesterday. She reports subjective fevers and chills, no documented fevers. She reports anxiety and becomes tearful during exam. She states she is trying to quit using heroin. She would like information on rehab resources. She has never been to drug rehab. Patient's father at bedside throughout evaluation. Discussed with RN. Objective Vitals Vital Signs Date Time Temp Pulse Resp B/P (MAP) Pulse Ox O2 Delivery O2 Flow Rate FiO2 10/05/17 07:00 97.3 76 18 103/65 (78) 96 10/05/17 03:05 97.8 86 18 105/68 (80) 97 10/05/17 00:53 97.7 113 16 120/81 (94) 98 Room Air Objective Remarks GENERAL: Well-nourished, well-developed young female patient in [facility]. SKIN: Warm and dry. No rash. Left dorsal hand with significant edema, erythema, warmth, TTP. HEENT: Normocephalic. Atraumatic. Pupils equal and round. Mucous membranes pink and moist. CARDIOVASCULAR: Regular rate and rhythm. No murmur appreciated. RESPIRATORY: No accessory muscle use. Clear to auscultation. Breath sounds equal bilaterally. GASTROINTESTINAL: Abdomen soft, non-tender, nondistended. Normoactive bowel sounds x4. MUSCULOSKELETAL: No obvious deformities. Left hand/wrist ROM limited secondary to edema and pain, although able to move all fingers, brisk capillary refill. NEUROLOGICAL: Awake and alert. No obvious cranial nerve deficits. Motor grossly within normal limits. Normal speech. PSYCHIATRIC: Appropriate mood and affect; insight and judgment normal. Medications and IVs Current Medications Medications (Trade) Dose Ordered Sig/Sidney Route Start Time Stop Time Status Last Admin Pharmacy Profile Note 0 ml @ 0 mls/hr UNSCH OTHER 10/05/17 03:00 Cefepime HCl 1000 mg/Sodium Chloride 100 ml @ 200 mls/hr Q12H IV 10/05/17 09:00 10/05/17 09:33 (Ativan Inj) 1 mg Q4H PRN IV PUSH 10/05/17 03:00 Sodium Chloride 1,000 ml @ 100 mls/hr Q10H IV 10/05/17 02:56 10/05/17 09:32 (NS Flush) 2 ml UNSCH PRN IV FLUSH 10/05/17 03:00 (NS Flush) 2 ml BID IV FLUSH 10/05/17 09:00 10/05/17 09:32 (Zofran Inj) 4 mg Q6H PRN IVP 10/05/17 03:00 (Tylenol) 650 mg Q6H PRN PO 10/05/17 03:00 (Roxicodone) 10 mg Q4H PRN PO 10/05/17 03:00 10/05/17 11:03 (Roxicodone) 5 mg Q4H PRN PO 10/05/17 03:00 (Brittany-Colace) 1 tab BID PO 10/05/17 09:00 10/05/17 09:31 (Milk Of Magnesia Liq) 30 ml Q12H PRN PO 10/05/17 03:00 (Senokot) 17.2 mg Q12H PRN PO 10/05/17 03:00 (Dulcolax Supp) 10 mg DAILY PRN RECTAL 10/05/17 03:00 (Lactulose Liq) 30 ml DAILY PRN PO 10/05/17 03:00 Vancomycin HCl 1000 mg/Sodium Chloride 250 ml @ 250 mls/hr Q8H IV 10/05/17 10:00 10/05/17 10:27 Miscellaneous Information SPECIFIC LAB TO BE [facility]... ONCE ONCE .XX 10/06/17 09:45 10/06/17 09:46 (Toradol Inj) 15 mg Q6HR IV PUSH 10/05/17 12:00 10/08/17 11:59 A/P Problem List: (1) Cellulitis of left hand ICD Code: L03.114 - Cellulitis of left upper limb Status: Acute (2) Anxiety ICD Code: F41.9 - Anxiety disorder, unspecified (3) IVDU (intravenous drug user) ICD Code: F19.90 - Other psychoactive substance use, unspecified, uncomplicated Assessment and Plan 27-year-old female with a PMH of IVDU and Anxiety was admitted on 10/04/17 for left arm cellulitis LUE Cellulitis: h/o IVDU, admitted 10/04/17 for similar however LEFT AMA, returns now for re-admission. -Continue on IV Vanc/Cefepime -Blood cultures from previous admit with NGTD -Monitor CBC -Consult ID, seen by Dr. Adler on last visit. Anxiety: Pt w/ significant anxiety, likely compounded by withdrawal from drug use. Ativan prn. IVDU: Pt counselled. Admits to ongoing IV Heroin abuse. Ativan prn for withdrawal. Consult case management to provide info on drug rehab resources prior to discharge. Hypokalemia: K 3.1. Give po KCl replacement. Repeat labs. DVT Prophylaxis: SCD/Teds. Discharge Planning Discussed with UR, admit to inpatient. Likely needs additional 2-3days of IV antibiotics. Jossy Leyva PA-C Oct 05, 2017 9:31 am
[2017-10-05] MEDS: SODIUM CHLORIDE 0.9% FLUSH 10 ML FLUSH IV FLUSH SCH ×2 (09:32→19:55)
[2017-10-05] MEDS: CEFEPIME INJ 1,000 MG in SODIUM CHLORIDE 0.9% INJ 100 ML IV SCH ×2 (09:33→20:05)
[2017-10-05] MEDS: VANCOMYCIN 1,000 MG/NS 250 ML IV SCH ×4 (10:27→18:06)
[2017-10-05] MEDS: LORazepam 2 MG/ML VIAL IV PUSH PRN ×3 (10:30→21:06)
[2017-10-05] MEDS ORDERED: POTASSIUM CHLORIDE 20 MEQ CONTROLLED RELEASE TAB PO ONE (11:45)
[2017-10-05] MEDS: KETOROLAC TROMETHAMINE 30 MG/ML (IVP) VIAL IV PUSH SCH ×2 (15:07→18:06)
[2017-10-05] MEDS: REMOVE OLD PATCH T-DERMAL SCH (17:00)
[2017-10-05] MEDS: NICOTINE 21 MG/24 HR PATCH T-DERMAL SCH (17:46)
[2017-10-06] MEDS: KETOROLAC TROMETHAMINE 30 MG/ML (IVP) VIAL IV PUSH SCH ×4 (00:23→18:00)
[2017-10-06] MEDS: SODIUM CHLOR 0.9% 1000 ML INJ 1,000 ML IV SCH ×2 (00:24→18:56)
[2017-10-06] MEDS: VANCOMYCIN 1,000 MG/NS 250 ML IV SCH ×6 (02:50→18:59)
[2017-10-06 03:52] VITALS: BP 100/64; PULSE 83; RESP 18; O2SAT 95
[2017-10-06] MEDS: REMOVE OLD PATCH T-DERMAL SCH (09:00)
[2017-10-06] MEDS: DOCUSATE SODIUM 50 MG/SENNA 8.6 MG TAB PO SCH ×2 (09:00→20:29)
[2017-10-06] MEDS: SODIUM CHLORIDE 0.9% FLUSH 10 ML FLUSH IV FLUSH SCH ×2 (09:00→20:29)
[2017-10-06] MEDS: NICOTINE 21 MG/24 HR PATCH T-DERMAL SCH (09:09)
--- NOTE | 2017-10-06 09:33 | HHI.PR ---
Subjective Remarks Follow up for LUE cellulitis. The patient reports minimal improvement of left hand cellulitis. Still reporting significant 10/10 pain throughout the hand. Range of motion improving. Denies fevers/chills. Right hand IV site infiltrated overnight, patient reporting edema and pain at the right hand. She continues to report anxiety and requesting increased dosing of ativan, however discussed maintaining current dose, patient agrees. Objective Vitals Vital Signs Date Time Temp Pulse Resp B/P (MAP) Pulse Ox O2 Delivery O2 Flow Rate FiO2 10/06/17 03:52 83 18 100/64 (76) 95 10/05/17 23:42 100 18 98/62 (74) 95 10/05/17 19:46 98.0 101 18 104/63 (77) 97 10/05/17 15:35 98.2 98 18 103/69 (80) 96 10/05/17 11:34 98.1 90 16 118/75 (89) 96 I/O 10/05/17 10/05/17 10/05/17 10/06/17 10/06/17 10/06/17 07:00 15:00 23:00 07:00 15:00 23:00 Intake Total 480 ml 1000 ml Balance 480 ml 1000 ml Intake Oral 480 ml IV Total 1000 ml # Voids 3 2 # Bowel Movements 3 1 Objective Remarks GENERAL: Well-nourished, well-developed young female patient in [facility]. SKIN: Warm and dry. No rash. Left dorsal hand with significant edema, erythema, warmth, TTP; overall improving. HEENT: Normocephalic. Atraumatic. Pupils equal and round. Mucous membranes pink and moist. CARDIOVASCULAR: Regular rate and rhythm. No murmur appreciated. RESPIRATORY: No accessory muscle use. Clear to auscultation. Breath sounds equal bilaterally. GASTROINTESTINAL: Abdomen soft, non-tender, nondistended. Normoactive bowel sounds x4. MUSCULOSKELETAL: No obvious deformities. Left hand/wrist ROM limited secondary to edema and pain, although able to move all fingers, brisk capillary refill. NEUROLOGICAL: Awake and alert. No obvious cranial nerve deficits. Motor grossly within normal limits. Normal speech. PSYCHIATRIC: Anxious mood; insight and judgment normal. Medications and IVs Current Medications Medications (Trade) Dose Ordered Sig/Sidney Route Start Time Stop Time Status Last Admin Pharmacy Profile Note 0 ml @ 0 mls/hr UNSCH OTHER 2/25/18 03:00 Cefepime HCl 1000 mg/Sodium Chloride 100 ml @ 200 mls/hr Q12H IV 10/05/17 09:00 10/06/17 10:05 (Ativan Inj) 1 mg Q4H PRN IV PUSH 10/05/17 03:00 10/06/17 10:02 Sodium Chloride 1,000 ml @ 100 mls/hr Q10H IV 10/05/17 02:56 10/06/17 00:24 (NS Flush) 2 ml UNSCH PRN IV FLUSH 10/05/17 03:00 (NS Flush) 2 ml BID IV FLUSH 10/05/17 09:00 10/05/17 09:32 (Zofran Inj) 4 mg Q6H PRN IVP 10/05/17 03:00 (Tylenol) 650 mg Q6H PRN PO 10/05/17 03:00 (Roxicodone) 10 mg Q4H PRN PO 10/05/17 03:00 10/06/17 09:10 (Roxicodone) 5 mg Q4H PRN PO 10/05/17 03:00 10/05/17 15:10 (Brittany-Colace) 1 tab BID PO 10/05/17 09:00 10/05/17 20:03 (Milk Of Magnesia Liq) 30 ml Q12H PRN PO 10/05/17 03:00 (Senokot) 17.2 mg Q12H PRN PO 10/05/17 03:00 (Dulcolax Supp) 10 mg DAILY PRN RECTAL 10/05/17 03:00 (Lactulose Liq) 30 ml DAILY PRN PO 10/05/17 03:00 Vancomycin HCl 1000 mg/Sodium Chloride 250 ml @ 250 mls/hr Q8H IV 10/05/17 10:00 10/06/17 11:48 (Toradol Inj) 15 mg Q6HR IV PUSH 10/05/17 12:00 10/08/17 11:59 10/06/17 00:23 (Habitrol 21 Mg Patch.24 Hr) 1 patch DAILY T-DERMAL 10/05/17 17:30 10/06/17 09:09 Miscellaneous Information 1 DAILY T-DERMAL 10/05/17 17:30 10/06/17 09:00 A/P Problem List: (1) Cellulitis of left hand ICD Code: L03.114 - Cellulitis of left upper limb Status: Acute (2) Anxiety ICD Code: F41.9 - Anxiety disorder, unspecified (3) IVDU (intravenous drug user) ICD Code: F19.90 - Other psychoactive substance use, unspecified, uncomplicated Assessment and Plan 27-year-old female with a PMH of IVDU and Anxiety was admitted on 10/04/17 for left arm cellulitis LUE Cellulitis: h/o IVDU, admitted 10/04/17 for similar however LEFT AMA, returns now for re-admission. -Continue on IV Vanc/Cefepime -Blood cultures from previous admit with NGTD -Monitor CBC and BMP, still awaiting labs today -Pain control with oxycodone prn -Elevate LUE, patient keeps elevated on pillows -Consult ID, seen by Dr. Adler on last visit, recommended to continue antibiotics -Cellulitis is improving daily per my evaluation, although patient continues to report pain and no improvement. Anxiety: Pt w/ significant anxiety, likely compounded by withdrawal from drug use. IV Ativan prn. Anxiety improving. IVDU: Pt counselled. Admits to ongoing IV Heroin abuse. Ativan prn for withdrawal. Consult case management to provide info on drug rehab resources prior to discharge. Hypokalemia: K 3.1. Give po KCl replacement. Repeat labs pending. Right Hand IV Infiltration: occurred today 10/06. Apply warm compresses. Elevate RUE. Monitor. DVT Prophylaxis: SCD/Teds. Discharge Planning Hopefully discharge in 2-3days pending further clinical improvement and ID clearance. Jossy Leyva PA-C Oct 06, 2017 9:33 am
[2017-10-06] MEDS ORDERED: PHARMACY ORDERED LAB ONE (09:45)
[2017-10-06] MEDS ORDERED: LORazepam 1 MG TAB PO ONE (10:00)
[2017-10-06] MEDS: LORazepam 2 MG/ML VIAL IV PUSH PRN ×3 (10:02→20:37)
[2017-10-06] MEDS: CEFEPIME INJ 1,000 MG in SODIUM CHLORIDE 0.9% INJ 100 ML IV SCH ×2 (10:05→20:31)
[2017-10-06 11:43] VITALS: BP 103/61; PULSE 94; RESP 20; TEMP 98.3; O2SAT 95
[2017-10-06 18:29] LABS: BASOPHIL % 0.7 % (0.0-2.0); EOSINOPHIL # 0.2 TH/MM3 (0-0.4); EOSINOPHIL % 3.7 % (0.0-4.0); HEMATOCRIT 38.6 % (35.0-46.0); HEMOGLOBIN 13.6 GM/DL (11.6-15.3); LYMPH % 28.6 % (9.0-44.0); LYMPHOCYTE # 1.5 TH/MM3 (1.0-4.8); MEAN CELL VOLUME 88.2 FL (80.0-100.0); MEAN CORPUSCULAR HGB CONC 35.1 % (32.0-36.0); MEAN PLATELET VOLUME 8.1 FL (7.0-11.0); MONO % 8.8 % (0.0-8.0); MONOCYTE # 0.5 TH/MM3 (0-0.9); NEUT % 58.2 % (16.0-70.0); PLATELET COUNT 315 TH/MM3 (150-450); RED BLOOD COUNT 4.38 MIL/MM3 (4.00-5.30); RED CELL DISTRIBUTION WIDTH 13.6 % (11.6-17.2); WHITE BLOOD COUNT 5.2 TH/MM3 (4.0-11.0)
[2017-10-06 18:57] LABS: BICARBONATE 25.2 MEQ/L (21.0-32.0); CALCIUM 8.6 MG/DL (8.5-10.1); CREATININE 0.61 MG/DL (0.50-1.00)
[2017-10-06 20:34] VITALS: BP 100/65; PULSE 90; RESP 17; TEMP 98.4; O2SAT 95
[2017-10-07 00:47] VITALS: BP 105/75; PULSE 101; RESP 20; TEMP 98.4; O2SAT 96
[2017-10-07] MEDS: VANCOMYCIN 1,000 MG/NS 250 ML IV SCH ×2 (03:24)
[2017-10-07 03:26] VITALS: BP 100/65; PULSE 93; RESP 17; O2SAT 97
[2017-10-07] MEDS: LORazepam 2 MG/ML VIAL IV PUSH PRN (03:28)
[2017-10-07 04:56] VITALS: BP 114/67; PULSE 93; RESP 16; TEMP 87.7; O2SAT 99
[2017-10-07] MEDS: KETOROLAC TROMETHAMINE 30 MG/ML (IVP) VIAL IV PUSH SCH ×2 (06:00)
[2017-10-07] MEDS: SODIUM CHLOR 0.9% 1000 ML INJ 1,000 ML IV SCH (06:48)
--- NOTE | 2017-10-07 09:50 | MB ---
cc: Estuardo Adler MD DATE OF CONSULT: 10/06/2017 REQUESTING PHYSICIAN: Dr. Escalanet REASON FOR CONSULTATION: Left upper extremity cellulitis. HISTORY OF PRESENT ILLNESS: This is a 28-year-old white female with history of IV drug abuse. The patient was admitted to the hospital on October 04 with left arm cellulitis. She had very severe cellulitis and marked swelling of the right hand and right arm. This is in a location where she was injecting IV drugs. She was on IV antibiotics and being monitored. The patient apparently became angry and left the hospital against medical advice on October 04. She returned to the emergency department on 10/05 because she was worried that she could lose her arm, worried that she could . She was started back on antibiotics and this consultation is requested for management. Currently, she is lying in bed and she appears somewhat somnolent. She is asking for pain medications. Blood cultures taken on 10/04 have no growth in 2 days. Blood counts have been ordered and pending. She is afebrile. She denies to me any use of IV drugs between the time she left on the and came back on the . She has no new complaints beside the severe pain in her left arm and she is worried that her right arm is swollen as well. She is complaining about the IV in her right arm and states that it padilla when she gets medications. PAST MEDICAL HISTORY: IV drug abuse. ALLERGIES: NO KNOWN DRUG ALLERGIES. MEDICATIONS: Vancomycin, cefepime, oxycodone 10 as needed. SOCIAL HISTORY: Positive for IV drug use. Denies alcohol use. Positive tobacco use. The patient uses IV drugs in the form of heroin. REVIEW OF SYSTEMS: Pertinents mentioned in the History of Present Illness. FAMILY HISTORY: Noncontributory. PHYSICAL EXAMINATION: GENERAL: This is a well developed female who is in no acute distress. She is awake and alert. VITAL SIGNS: Include temperature 98.3, blood pressure 103/61, respirations 20, heart rate 94. HEENT: The head is atraumatic. Extraocular movements grossly intact. Pupils reactive to light, but constricted. Oropharynx, moist mucosa, without lesions. NECK: Supple, no adenopathy or swelling. LUNGS: Clear breath sounds. CARDIOVASCULAR: Heart regular, S1, S2, without murmurs. ABDOMEN: Bowel sounds present, soft, nontender. RECTAL: Not performed. EXTREMITIES: The left upper extremity remains markedly swollen. It is very tender on palpation. There is marked erythema covering the entire dorsum of the hand. No blisters. No visible break in the skin. Pulses at the ulna and radius diminished. SKIN: No diffuse rash. NEUROLOGIC: No gross focal findings. PSYCHIATRIC: The patient is calm and cooperative. LABORATORY DATA: WBC pending. IMPRESSION: Severe cellulitis of the left upper extremity. The patient with intravenous drug use and injected intravenous drugs into the left upper extremity. RECOMMENDATIONS: 1. Continue the vancomycin. 2. Continue cefepime. 3. Elevate the left arm. 4. Monitor response with antibiotic treatment. 5. Follow labs. Thank you for this consultation. I will follow the patient's progress. At this point, I do not see any signs suggesting possibility of endocarditis in this patient who has no fevers and previously normal white blood cell count and blood cultures are negative to date. MD TOAN Giordano/HUMPHREY , 04:55 PM , 10:59 PM
== END 2017-10-07 08:24 | disposition left against medical advice (07) | DRG 603 ==
LOC: NEPC 00:52 → NEDA 01:25 → NEPHCDU 03:00 → OBSVTOIN 10:04
PROVIDERS: ADMIT Family Medicine; ATTEND Family Medicine
DX: L03.114 Cellulitis of left upper limb (principal); F32.9 Major depressive disorder, single episode, unspecified; F11.10 Opioid abuse, uncomplicated; F41.9 Anxiety disorder, unspecified; F13.10 Sedative, hypnotic or anxiolytic abuse, uncomplicated; E87.6 Hypokalemia; Z72.0 Tobacco use; Z86.14 Personal history of Methicillin resistant Staphylococcus aureus infection
CPT/HCPCS: 76937; 80048; 80202; 83735; 85025; 87641; 96374; 96375; J0692; J1200; J1885; J2060; J3370; J7030; J7050